=== PATIENT | female | born 1990 | race Caucasian/White ===

== ENCOUNTER → 2018-09-26 | Outpatient (CLI) | payer BC ==
[~2018-09-26] MED LIST: HYDROCHLOROTH12.5 M3 PO; TOPROL XL25 MG PO; ZESTRIL20 MG PO
--- NOTE | ~2018-09-26 | HM ---
[place], [place] HOLTER MONITOR REPORT [id number] UNIT #: [id number] ROOM: DOCTOR: BASILIA DICKSON MD BIRTHDATE: [birth year] DOS: 10/02/2018 HOLTER REPORT DATE OF TESTIN09/26/2018 DATE OF ANALYSIS: 09/28/2018 REASON FOR TESTING: Palpitations. IMPRESSION: Baseline rhythm is sinus rhythm. Minimum heart rate 48, maximum heart rate 145, and the average heart rate was 81. Monitoring time 48 hours. There were frequent ventricular ectopy where the total PVC burden was 6.2%. Occasional supraventricular ectopic beats and total burden of atrial ectopic beats was 0.4%. No significant pauses were noted. No ventricular tachycardia or fibrillation was noted. Atrial fibrillation burden was 0%. There were 2 episodes of palpitations, which correlated with premature ventricular complexes on the Holter monitor. Basilia Dickson MD CM:HOLTER:HOLTER MONITOR REPORT [id number] BASILIA DICKSON MD
== END | disposition home or self-care (01) ==
LOC: CARD 09-03 08:00
DX: I37.1 Nonrheumatic pulmonary valve insufficiency (principal); I10 Essential (primary) hypertension

== ENCOUNTER → 2023-06-22 | Outpatient (CLI) | payer BC | END | disposition home or self-care (01) | LOC: RESCLI 01:28 | PROVIDERS: ATTEND Internal Medicine | DX: F41.9 Anxiety disorder, unspecified (principal); I10 Essential (primary) hypertension; F32.9 Major depressive disorder, single episode, unspecified; E66.9 Obesity, unspecified; K21.9 Gastro-esophageal reflux disease without esophagitis; G44.89 Other headache syndrome; E72.12 Methylenetetrahydrofolate reductase deficiency; E55.9 Vitamin D deficiency, unspecified; Z98.890 Other specified postprocedural states; Z79.82 Long term (current) use of aspirin; Z79.899 Other long term (current) drug therapy ==

== ENCOUNTER → 2024-02-14 | Outpatient (CLI) | payer BC ==
[2024-02-14 12:38] LABS: BASO # 0.1 10*3/uL (0.0-0.1); BASO % 0.7 % (0.0-1.0); EOS # 0.2 10*3/uL (0.0-0.4); EOS % 2.1 % (1.0-4.0); HEMATOCRIT 40.6 % (37.0-47.0); LYMPH # 1.9 10*3/uL (1.3-4.4); LYMPH % 25.1 % (27.0-41.0); MEAN CELL VOLUME 77.9 fl (81.0-99.0); MEAN CORPUSCULAR HGB 24.4 pg (27.0-31.0); MEAN CORPUSCULAR HGB CONC 31.3 g/dl (33.0-37.0); MEAN PLATELET VOLUME 10.1 fl (9.6-12.3); MONO # 0.5 10*3/uL (0.1-1.0); MONO % 6.4 % (3.0-9.0); NEUT # 4.9 10*3/uL (2.3-7.9); NEUT % 65.2 % (47.0-73.0); PLATELET COUNT AUTOMATED 334 10*3/uL (130-400); RED BLOOD COUNT 5.21 10*6/uL (4.10-5.10); RED CELL DISTRI WIDTH 15.4 % (0-14.5); WHITE BLOOD COUNT 7.5 10*3/uL (4.8-10.8)
[2024-02-14 12:53] LABS: ALKALINE PHOSPHATASE 86 U/L (46-116); BUN 11 mg/dl (9-23); CHLORIDE 104 mmol/L (98-107); CHOLESTEROL 145 mg/dL (<200); LDL CHOLESTEROL 93 mg/dL (9-159); POTASSIUM 4.2 mmol/L (3.4-5.1); SGPT/ALT 14 U/L (5-49); TRIGLYCERIDES 86 mg/dl (<150)
== END | disposition home or self-care (01) ==
LOC: LAB 12:09
PROVIDERS: ATTEND Nurse Practitioner Family
DX: I10 Essential (primary) hypertension (principal); E66.9 Obesity, unspecified; R00.2 Palpitations

== ENCOUNTER → 2024-05-01 | Outpatient (CLI) | payer BC | END | disposition home or self-care (01) | LOC: LAB 13:43 | PROVIDERS: ATTEND Nurse Practitioner Family | DX: Z12.4 Encounter for screening for malignant neoplasm of cervix (principal) ==